=== PATIENT | male | born 1975 | race Caucasian/White ===

== ENCOUNTER → 2020-10-24 12:56 | Outpatient (CLI) | payer MEDICARE, MEDICAID, SELFPAY ==
--- NOTE | 2020-10-24 13:00 | CT_ITS ---
STUDY: CT CHEST WITHOUT CONTRAST REASON FOR EXAM: Male, 45 years old. SOB X 1 YEAR. RADIATION DOSAGE (If Supplied By Facility): CTDIvol = ( 20.10 ) mGy, DLP = ( 724.93 ) mGycm TECHNIQUE: Transaxial imaging was performed without the administration of intravenous contrast material. Multiplanar coronal and sagittal images were reformatted. Individualized dose optimization techniques were used for this CT. COMPARISON: None. FINDINGS: Small benign-appearing bilateral axillary lymph nodes. The lungs are normal. There is no demonstrated pleural abnormality. Normal heart and pericardium. There are multiple small lymph nodes within the mediastinum, which are normal in size and morphology most compatible with reactive lymph hyperplasia. Normal hilar regions. Normal unenhanced pulmonary arteries. There is atherosclerotic calcification of the aortic arch . Normal osseous structures. Hepatomegaly. Diffuse fatty infiltration of the liver. CT/Chest without Contrast IMPRESSION: Diffuse fatty infiltration of the liver. The lungs are clear. Electronically Signed: Manpreet Chinchilla MD at 13:58 EST , Service support ,
--- NOTE | 2020-10-24 13:30 | ECHOCS_ITS ---
Reason For Study: Dyspnea Procedure This was a 2D Doppler, Color Flow transthoracic echocardiogram. The study was technically difficult. Contrast injection was performed. Exam performed in department. Left Ventricle Normal LV size. Mild concentric left ventricular hypertrophy. Left ventricular systolic function is normal. The estimated ejection fraction is 65 %. No regional wall motion abnormalities noted. Right Ventricle Normal RV size. Normal systolic function. Atria Normal left atrium. Normal right atrium. Mitral Valve Normal mitral valve. Tricuspid Valve Normal tricuspid valve. Unable to estimate RV systolic pressure due to insufficient tricuspid regurgitant envelope. Aortic Valve The aortic valve is not well visualized. Pulmonic Valve The pulmonic valve is not well visualized. Great Vessels Normal aortic root. The pulmonary artery is normal size. Normal inferior vena cava. Pericardium/Pleural No pericardial effusion. Medication 22 gauge I.V. with prn adaptor inserted into right arm. Diluted definity 2ml given slow IV push to enhance endocardial definition. MMode/2D Measurements & Calculations LVIDd: 4.2 cm IVSd: 1.2 cm LA dimension: 3.8 cm LVIDs: 2.9 cm LVPWd: 1.2 cm FS: 31.5 % LAV(MOD-bp): 33.6 ml LA A4 area: 12.8 cm2 RA A4 area: 10.5 cm2 LAV(MOD-bp) Indexed: 14.6 ml/m2 LAV(MOD-sp2): 36.2 ml LAV(MOD-sp4): 29.0 ml Time Measurements MV dec time: 0.21 sec Doppler Measurements & Calculations MV E max jeremiah: 86.5 cm/sec Lat Peak E' Jeremiah: 12.4 cm/sec Med Peak E' Jeremiah: 7.7 cm/sec MV A max jeremiah: 80.3 cm/sec E/E' lat: 7.0 E/E' med: 11.3 MV E/A: 1.1 MV V2 max: 97.3 cm/sec MV P1/2t max jeremiah: 101.1 cm/sec Ao V2 max: 147.3 cm/sec MV max P.8 mmHg MV P1/2t: 94.5 msec Ao max P.7 mmHg MV V2 mean: 62.8 cm/sec MV dec slope: 313.5 cm/sec2 MV mean P.8 mmHg MV V2 VTI: 26.4 cm MVA(P1/2t): 2.3 cm2 LV V1 max: 119.9 cm/sec PA V2 max: 114.6 cm/sec LV V1 max P.8 mmHg Interpretation Summary Normal LV size. Left ventricular systolic function is normal. The estimated ejection fraction is 65 %. Mild concentric left ventricular hypertrophy. Contrast injection was performed. Ordering Physician: Davonte Swain Referring Physician: Martita Freeman Performed By: Merrick Hewitt RCS
[2020-10-24 13:53] LABS: Erythrocyte Sedimentation Rate 5 mm/hr (0-20)
[2020-10-24 14:04] LABS: BNP,B-Type NATRIURETIC PEPTIDE 7.2 pg/mL (0-100)
[2020-10-26 01:08] LABS: Angiotensin Convert Enzyme 31 U/L (14-82)
== END ==
PROVIDERS: PCP Family Medicine; Referring Provider Internal Medicine Pulmonary Disease; Visit Provider Internal Medicine Pulmonary Disease
DX: R06.00 Dyspnea, unspecified (principal); I10 Essential (primary) hypertension
CPT/HCPCS: 36415; 71250; 82164; 83880; 85652; 93306; Q9957; A4216; C8929

== ENCOUNTER → 2022-02-20 | Outpatient (CLI) | payer MEDICARE, MEDICAID, SELFPAY ==
--- NOTE | 2022-02-20 14:50 | CT_ITS ---
STUDY: CT SOFT TISSUE NECK WITH CONTRAST REASON FOR EXAM: Male, 47 years old. Enlarging painful right neck mass. RADIATION DOSAGE (If Supplied By Facility): CTDIvol = ( 18.86 ) mGy, DLP = ( 588.88 ) mGycm TECHNIQUE: The patient was scanned in a multi-detector CT scanner. High resolution transaxial imaging was performed following intravenous administration of IV 75mL [id number]-[id number]. Sagittal and coronal images were reconstructed. Individualized dose optimization techniques were used for this CT. COMPARISON: None. FINDINGS: Normal bilateral parotid glands. Normal bilateral hospital pharmacist spaces. Normal bilateral parapharyngeal spaces. Normal bilateral carotid spaces. Normal bilateral sublingual and submandibular glands and spaces. Normal visualized nasopharynx. Normal retropharyngeal space. Normal perivertebral space. Normal visualized bilateral faucial tonsils. The visualized tongue, tongue base and oropharynx are normal. The visualized cervical lymph nodes (levels I-) are within normal size limits, and maintain normal morphology. There is no demonstrated solid or cystic mass lesion. There is no abnormal contrast enhancement. Normal epiglottis, bilateral vallecula and hypopharynx. The pre-epiglottic and paraglottic adipose spaces are normal. Normal visualized bilateral piriform sinuses, aryepiglottic folds, vocal cords, and arytenoid-cricoid articulations. Normal subglottic trachea. Normal bilateral lobes of the thyroid gland. Normal visualized pulmonary apices. Normal visualized paranasal sinuses. Normal visualized cervical spine. CT/Soft Tissue Neck WITH Contrast IMPRESSION: Normal enhanced CT examination of the soft tissues of the neck. Electronically Signed: Manpreet Chinchilla MD at 15:29 EDT ,
[2022-02-20 15:11] LABS: CREATININE FINGERSTICK < 0.9 mg/dL (0.70-1.30); EGFR FINGERSTICK > 60.0000 mL/min (>60)
== END | disposition home or self-care (01) ==
LOC: CT 14:43
PROVIDERS: PCP Student in an Organized Health Care Education/Training Program; Referring Provider Otolaryngology; Visit Provider Otolaryngology
DX: R22.1 Localized swelling, mass and lump, neck (principal); E11.9 Type 2 diabetes mellitus without complications; I10 Essential (primary) hypertension
CPT/HCPCS: 70491; Q9967